=== PATIENT | male | born 1945 | race Caucasian/White ===

== ENCOUNTER 2020-06-10 10:25 | Outpatient (CLI) | payer OTHER, SELFPAY ==
--- NOTE | 2020-06-10 10:40 | CT_ITS ---
WS: [id number] CT CHEST WITH INTRAVENOUS CONTRAST HISTORY: Abnormal CT. TECHNIQUE: Contiguous 5 mm axial imaging performed on the thorax. Coronal and sagittal reformats are submitted. All CT scans at [facility] use at least one of these dose optimization techniq ues: automated exposure control; mA and/or kV adjustment per patient size (includes targeted exams wh ere dose is matched to clinical indication); or iterative reconstruction. CONTRAST: Omnipaque 300; 95 mL IV. DLP: 867.4 mGycm COMPARISON: None available. Lungs and central airway: Severe chronic emphysema. Mild interstitial thickening and articulations. B enign granuloma at the lingula. No pneumonia or mass. Pleura: Normal. No pleural effusion. Heart and pericardium: Mild enlargement of the heart chambers. There are a few scattered calcificatio ns in the ewiiaapaayp coronary arteries. No pericardial effusion. Mediastinum and uriel: Indeterminate mediastinal and hilar lymph nodes. The largest lymph node is LEFT paratracheal at the AP window measuring 14 mm. Smaller precarinal and hilar lymph nodes. Vessels: Mild atherosclerosis aorta. No aneurysm. Pulmonary artery size is normal. Chest wall and lower neck: No soft tissue masses. Upper abdomen: Mild hepatic steatosis. Visualized gallbladder is negative. 10 mm well-circumscribed n odule in the LEFT adrenal gland. RIGHT adrenal gland is negative. Small hiatal hernia. Osseous structures: No destructive process. CT/CT chest w con* [id number] IMPRESSION: 1. Severe chronic emphysema with no pneumonia. 2. Indeterminate hilar mediastinal lymph nodes. Largest lymph node measures 14 mm LEFT paratracheal region. Recommend follow-up chest CT in 3-4 months. 3. LEFT adrenal nodule measures 10 mm. With no history of malignancy this is p robably a benign adenoma. This can be reevaluated in 3-4 months for additional change. 4. By history there is an abnormal CT which is not available for review. If th is CT would become available for review an addendum can be performed. The abnor mality seen by the prior CT was not given as part of that history. Comparison w ith that study is strongly recommended.
[2020-06-10 11:09] LABS: Blood Urea Nitrogen 13 mg/dL (8-23)
[2020-06-10] MEDS: iohexol 300 mg/mL 100 mL Btl IV (11:21)
== END 2020-06-10 10:26 | disposition home or self-care (01) ==
PROVIDERS: Visit Provider Internal Medicine
DX: R93.89 Abnormal findings on diagnostic imaging of other specified body structures (principal); J43.8 Other emphysema; R59.9 Enlarged lymph nodes, unspecified; E27.9 Disorder of adrenal gland, unspecified
CPT/HCPCS: 71260; 82565; 84520; Q9967

== ENCOUNTER → 2020-08-11 17:49 | Outpatient (BNVA) | payer OTHER, SELFPAY | PROVIDERS: Visit Provider Nurse Practitioner Family | DX: Z20.828 Contact with and (suspected) exposure to other viral communicable diseases (principal) | CPT/HCPCS: 87635 ==

== ENCOUNTER 2023-03-11 12:41 | Outpatient (CLI) | payer OTHER, SELFPAY ==
--- NOTE | 2023-03-11 13:02 | CT_ITS ---
WS: [id number] CT ABDOMEN PELVIS TECHNIQUE: Contrast-enhanced CT of the abdomen and pelvis with coronal and sagittal reformatted image s. CLINICAL INFORMATION: FOLLOW UP ENLARGED LYMPH NODES AND ADRENAL MASS HX COMPARISON: Outside [facility] CT 2018. Chest CT June 10, 2020 DLP: 426.[address] scans at [facility] use at least one of these dose optimization techniques: automated e xposure control; mA and/or kV adjustment per patient size (includes targeted exams where dose is matc hed to clinical indication); or iterative reconstruction. FINDINGS: Low-attenuation LEFT adrenal nodule measuring 10 11 mm is unchanged likely adenoma. Additio nal small low-attenuation lesion RIGHT adrenal gland is not included on the prior examination CT ches t. This measures 8 mm also likely adrenal adenoma. Lung bases are well aerated. Mild diffuse fatty infiltration liver. Normal portal vein and splenic v ein. Gallbladder is contracted. Normal spleen. Normal GE junction. Normal portal vein and splenic vei n. Normal pancreatic parenchymal enhancement. Normal caliber abdominal aorta. Celiac and SMA are patent. Small RIGHT renal cysts. No hydronephrosis in either kidney. Prostate enla rgement measuring 4.6 cm. Recommend correlation PSA. Normal sigmoid colon. No evidence of small or la rge bowel obstruction. Fat-containing umbilical hernia. CT/CT abdomen pelvis w con* [id number] IMPRESSION: 1. Mild diffuse fatty infiltration liver. 2. Prostate enlargement measuring 4.6 CM. Thickening of the seminal vesicles. Recommend correlation PSA. 3. No hydronephrosis in either kidney. Incidental RIGHT renal cysts 4. Stable LEFT adrenal lesion measuring 10 to 11 mm likely adrenal adenoma unc hanged. Additional 8 mm nodule RIGHT adrenal gland also likely adenoma. These n odules are unchanged since the outside NE CT 5. No other suspicious findings.
[2023-03-11 14:34] LABS: Blood Urea Nitrogen 12 mg/dL (8-23)
[2023-03-11] MEDS: iohexol 350 mg/mL 500 mL Btl (per mL) PO (14:40)
[2023-03-11] MEDS: iohexol 350 mg/mL 500 mL Btl (per mL) IV (14:40)
== END 2023-03-11 12:42 | disposition home or self-care (01) ==
LOC: RAD 12:44
PROVIDERS: PCP Family Medicine; Visit Provider Family Medicine
DX: R59.9 Enlarged lymph nodes, unspecified (principal); K76.0 Fatty (change of) liver, not elsewhere classified; N40.0 Benign prostatic hyperplasia without lower urinary tract symptoms
CPT/HCPCS: 74177; 82565; 84520; Q9967

== ENCOUNTER 2023-04-22 09:49 | Outpatient (CLI) | payer OTHER, SELFPAY ==
--- NOTE | 2023-04-22 09:59 | USCV_ITS ---
Oren Hyde Age: 78 Gender: M : 1945 Exam Date: 04/22/2023 10:59 Ordering Phys: Iman Cardoso MD Technologist: CT Exam Location: [facility] – [place] Indication: stenosis Risk Factors: Previous Vascular Surgery: Right Brachial BP: / Left Brachial BP: / Right Left Velocity (cm/s) Spectral Plaque Velocity (cm/s) Spectral Plaque Syst/Diast Broadening Syst/Diast Broadening 65.20/ 13.90 Prox CCA 77.80 / 16.20 66.50/ 12.90 Mid CCA 80.30 / 16.20 66.50/ 16.20 Distal CCA 65.30 / 14.20 51.10/ 17.80 Prox ICA 39.90 / 12.80 55.20/ 15.40 Mid ICA 53.20 / 14.60 41.50/ 12.40 Distal ICA 109.20/ 34.20 123.10 ECA 72.40 0.83 ICA/CCA 1.36 Antegrade Vertebral Antegrade 29.00/ 6.50 cm/s 43.60/ 14.50 cm/s Tri Subclavian Tri 85.80 129.7 0 CONCLUSIONS Intimal thickening in the common carotid arteries and internal carotid arteries bilaterally. Right ICA stenosis <50%. Left ICA stenosis <50%. Normal antegrade Doppler flow noted in the right vertebral artery. Normal antegrade Doppler flow noted in the left vertebral artery. Gustavo Samayoa MD (Electronically Signed) Final Date: 22 April 2023 13:00 S
--- NOTE | 2023-04-22 09:59 | US_ITS ---
WS: [id number] RENAL ULTRASOUND HISTORY: R RENAL CYST FOUND ON CT COMPARISON: CT 03/03/2023 TECHNIQUE: 2-D and color Doppler imaging of the kidney submitted. Right kidney: 10.6 cm x 4.3 cm x 5.4 cm. Cortex: 1.6 cm Normal size kidney. No hydronephrosis. Several small cortical cysts are identified. The largest in th e upper pole measures 14 x 14 x 16 mm. Additional smaller cortical cysts. No solid mass. Left kidney: 9.5 cm x 4.1 cm x 4.6 cm. Cortex: 1.2 cm Normal echogenicity with no hydronephrosis or mass. Aorta: Normal. Urinary Bladder: Normally distended urinary bladder. Mildly heterogeneous prostate measures 5.4 x 3.9 x 4.4 cm. US/US renal BI* [id number] IMPRESSION: 1. No hydronephrosis or solid renal mass. 2. RIGHT renal cyst x3. The largest in the upper pole measures 14 x 14 x 16 mm . 3. Prostate enlargement.
== END 2023-04-22 09:50 | disposition home or self-care (01) ==
LOC: RAD 09:52
PROVIDERS: PCP Family Medicine; Visit Provider Family Medicine
DX: N40.0 Benign prostatic hyperplasia without lower urinary tract symptoms (principal); R42 Dizziness and giddiness; Q61.02 Congenital multiple renal cysts
CPT/HCPCS: 76770; 93880

== ENCOUNTER → 2023-06-14 14:39 | Outpatient (BNVA) | payer OTHER, SELFPAY | PROVIDERS: PCP Family Medicine; Visit Provider Internal Medicine Cardiovascular Disease | DX: I10 Essential (primary) hypertension (principal); R55 Syncope and collapse; R00.1 Bradycardia, unspecified; R07.9 Chest pain, unspecified; Z87.891 Personal history of nicotine dependence | CPT/HCPCS: 93005; 99204 ==

== ENCOUNTER → 2023-06-14 15:49 | Outpatient (BNVA) | payer OTHER, SELFPAY | PROVIDERS: PCP Family Medicine; Visit Provider Internal Medicine Cardiovascular Disease | DX: R07.9 Chest pain, unspecified (principal) | CPT/HCPCS: 93005 ==

== ENCOUNTER 2023-06-22 12:03 | Outpatient (CLI) | payer OTHER, SELFPAY ==
--- NOTE | 2023-06-22 12:15 | USCV_ITS ---
Oren Hyde Age: 78 Gender: M : 1945 Exam Date: 06/22/2023 12:53 Ordering Phys: Daina Frank MD ([email or web address]) Technologist: [place] [facility] [place]: syncope BP: 120 / 69 HR: 48 Rhythm: Sinus Technical Quality: Adequate MEASUREMENTS (Male / Female) Normal Values 2D ECHO LV Chamber Size 4.8 cm RV Chamber Size 3.7 cm LVOT Diameter 2.3 cm LV Ejection Fraction MOD 2C 64.2 % LV Ejection Fraction 2C AL 63.5 % LA Diameter 3.5 cm LA Width 3.2 cm LA Height 4.4 cm RA Width 3.0 cm RA Height 4.5 cm Aorta at Sinotubular Diameter 3.0 cm IVC Diameter 1.7 cm M-MODE Aortic Annulus Diameter 3.1 cm LA Ao Ratio MM 1.2 MV E Point Septal Separation 0.6 cm DOPPLER AV Peak Velocity 132.0 cm/s LVOT Peak Velocity 104.0 cm/s AV Area Cont Eq vti 2.8 cm squared AV Area Cont Eq pk 3.2 cm squared MV Area PHT 2.0 cm squared Mitral E to A Ratio 1.3 MV E' Velocity 38.0 cm/s Mitral E to MV E' Ratio 7.1 Mitral E to LV E' Lateral Ratio 6.7 Mitral E to LV E' Septal Ratio 7.6 TR Peak Velocity 208.5 cm/s TR Peak Gradient 17.4 mmHg TV Peak E Velocity 73.0 cm/s Right Atrial Pressure 3.0 mmHg Pulmonary Artery Systolic Pressu 20.4 mmHg PV Peak Velocity 111.0 cm/s FINDINGS Left Ventricle Normal left ventricular size and systolic function, EF 59 %. No regional wall motion abnormalities. Mild left ventricular hypertrophy. Right Ventricle Normal right ventricular size and systolic function. Right Atrium Normal right atrial size. Left Atrium The left atrium is normal in size. Mitral Valve No gross abnormalities noted Aortic Valve Thickened aortic valve. Tricuspid Valve Trace to mild tricuspid valve regurgitation. Pulmonic Valve NO gross abnormalities Pericardium No pericardial effusion. Aorta Normal aortic annulus size. IVC Normal inferior vena cava. CONCLUSIONS Normal left ventricular size and systolic function, EF 59 %. No regional wall motion abnormalities. Mild left ventricular hypertrophy. Thickened aortic valve. Trace to mild tricuspid valve regurgitation. Estimated pulmonary artery peak systolic pressure 20 mm Hg There is no pericardial effusion. There are no intracardiac masses. No similar previous studies are available for comparison Dr Daina Frank MD [facility] (Electronically Signed) Final Date: 23 June 2023 22:03 S
== END 2023-06-22 12:04 | disposition home or self-care (01) ==
PROVIDERS: PCP Family Medicine; Visit Provider Internal Medicine Cardiovascular Disease
DX: R55 Syncope and collapse (principal); R06.09 Other forms of dyspnea; I07.1 Rheumatic tricuspid insufficiency
CPT/HCPCS: 93306; 99204

== ENCOUNTER → 2023-09-19 09:06 | Outpatient (BNVA) | payer OTHER, SELFPAY | PROVIDERS: PCP Family Medicine; Referring Provider Family Medicine; Visit Provider Surgery | DX: K59.00 Constipation, unspecified | CPT/HCPCS: 99203 ==

== ENCOUNTER 2023-09-20 15:14 | Outpatient (CLI) | payer OTHER, SELFPAY ==
--- NOTE | 2023-09-20 15:20 | XR_ITS ---
WS: [id number] SCREENING DEXA SCAN [facility] CLINICAL INFORMATION: ELEVATED PTH-?OSTEOPOROSIS COMPARISON: None. FINDINGS: The L1-L4 bone mineral density measures 1.217 g/cm2. This corresponds to a T score score of 0.0 and Z score of 0.5. Left femoral neck bone mineral density measures 0.812 g/cm2. This corresponds to a T score of -2.0 an d Z score of -1.1. Right femoral neck bone mineral density measures 0.836 g/cm2. This corresponds to a T score -1.8of an d Z score of -0.9. Mean femoral neck bone mineral density measures 0.824 g/cm2. This corresponds to a T score of -1.9 an d Z score of -1.0. IMPRESSION: Normal bone mineralization lumbar spine. Osteopenia femoral necks. Patient's FRAX calculated 10 year probability for major osteoporotic fracture is 11.1% and osteoporot ic hip fracture is 4.8%.
== END 2023-09-20 15:15 | disposition home or self-care (01) ==
LOC: RAD 15:15
PROVIDERS: PCP Family Medicine; Visit Provider Family Medicine
DX: Z13.820 Encounter for screening for osteoporosis (principal); M85.852 Other specified disorders of bone density and structure, left thigh; M85.851 Other specified disorders of bone density and structure, right thigh; R79.89 Other specified abnormal findings of blood chemistry
CPT/HCPCS: 77080

== ENCOUNTER → 2023-09-29 13:56 | Outpatient (BNVA) | payer OTHER, SELFPAY | PROVIDERS: PCP Family Medicine; Visit Provider Internal Medicine Cardiovascular Disease | DX: R00.1 Bradycardia, unspecified (principal); I10 Essential (primary) hypertension; R55 Syncope and collapse; J43.9 Emphysema, unspecified; Z87.891 Personal history of nicotine dependence | CPT/HCPCS: 99214 ==

== ENCOUNTER → 2024-04-03 09:26 | Outpatient (BNVA) | payer OTHER, SELFPAY | PROVIDERS: PCP Family Medicine; Visit Provider Internal Medicine Cardiovascular Disease | DX: I10 Essential (primary) hypertension (principal); R00.1 Bradycardia, unspecified; R55 Syncope and collapse; R06.02 Shortness of breath; Z87.891 Personal history of nicotine dependence | CPT/HCPCS: 99214 ==

== ENCOUNTER 2024-04-26 07:10 | Outpatient (CLI) | payer OTHER, SELFPAY ==
[2024-04-26 07:43] VITALS: BMI 28.0
--- NOTE | 2024-04-26 08:11 | NMCV_ITS ---
NM ana maria perf SPECT r/s* [id number] Oren Hyde Age: 79 Gender: M : 1945 Exam Date: 04/26/2024 08:00 Ordering Phys: Daina Frank MD ([email or web address]) Technologist: TOMMY Caba Exam Location: [facility] Indications: CP, bradycardia STRESS TEST Please see separate stress test report in [facility] for full findings IMAGE PROTOCOL Rest/Stress 1 Lexiscan Day Radiopharmaceutical Dose (mCi) Administration Site Administered by Rest: Tc-99m 10.6 IV TOMMY Caba Sestamibi Stress:Tc-99m 32.3 IV TOMMY Caba Sestamibi Rest: 26-Apr-2024 60 Discovery 630 Stress: 26-Apr-2024 30 Discovery 630 0.4mg Lexiscan. Images obtained in supine and prone position. SPECT RESULTS Technical Quality: Good Raw Data Analysis: Normal Image Corrections: No attenuation or motion correction applied Summed Stress Score: 3 Summed Rest Score: 6 Summed Difference Score: 1 PERFUSION FINDINGS Small to moderate area of slightly decreased aseptic in the tracer uptake, involving the mid inferolateral, mid inferoseptal and apical lateral segments. Some reversibility was noted in the apical lateral segment FUNCTIONAL RESULTS (calculated via Gated SPECT) Stress Image LV EF (%): 74 Stress EDV (mL):107 TID: 0.97 Stress ESV (mL):28 FUNCTIONAL FINDINGS: Segmental wall motion analysis revealing no gross wall motion abnormalities IMPRESSIONS 1. Myocardial perfusion imaging revealing areas of slightly decreased persistent tracer uptake involving the mid inferolateral and mid inferoseptal regions suggesting myocardial scarring versus attenuation artifact. A small area of reversible defect in the apical lateral region, suggestive of ischemia in the distribution of the left circumflex artery 2. Normal LV ejection fraction of 74%. 3. LV wall motion analysis revealing no gross wall motion abnormalities. 4. Normal LV volume No similar previous studies are available for comparison Dr Daina Frank MD FAC (Electronically Signed) Final Date: 26 April 2024 20:15 S
--- NOTE | 2024-04-26 08:11 | ECG_ITS ---
[facility] Test Date: 2024-04-26 Pat Name: Oren Hyde Department: Room: Gender: Male Mobile Sales Expert: : 1945 Requested By: Daina Frank Order Number: [id number] Brock MD: Daina Frank M.D. Interpretive Statements NAME OF STUDY: LEXISCAN SESTAMIBI STRESS TEST INDICATION: Sob/near syncope, PROCEDURE: At the baseline, the EKG revealed sinus bradycardia with a normal ST Ts. The baseline heart was 54 bpm with a blood pressue of 129/79 mm of Hg Lexiscan was infused over a period of 20 seconds. A total of 0.4 milligrams of Lexiscan was infused. The stress phase was continued for a total of 5 minutes. Heart rate at the end of the stress phase was 55 bpm with a blood pressure 120/64 mm of Hg. The EKG at the peak infusion revealed no significant changes. Sestamibi was injected 20 seconds after the Lexiscan infusion. Heart rate at the end of the recovery phase was 56 bpm with a blood pressure of 122/65 mm of Hg. CONCLUSION: 1. No significant EKG changes with the LexiScan infusion 2. No LexiScan induced chest pain or cardiac arrhythmia 3. Normal blood pressure and heart rate response 4. Sestamibi/sestamibi perfusion scan pending; see separate report. Electronically Signed On 04-27-2024 19:50:36 CDT by Daina Frank M.D. [email or web address]
[2024-04-26] MEDS: regadenoson 0.4 Mg/5 ml Syringe 0.400000000000000022 MG IVP (08:37)
[2024-04-26 09:18] VITALS: BP 122/65; PULSE 56
== END 2024-04-26 07:11 | disposition home or self-care (01) ==
LOC: CDL 07:10
PROVIDERS: PCP Family Medicine; Visit Provider Internal Medicine Cardiovascular Disease
DX: R55 Syncope and collapse (principal)
CPT/HCPCS: 36415; 78452; 93017; 96374; A9500; J2785

== ENCOUNTER → 2024-10-10 08:08 | Outpatient (BNVA) | payer OTHER, SELFPAY | PROVIDERS: PCP Family Medicine; Referring Provider Family Medicine; Visit Provider Internal Medicine | DX: E27.9 Disorder of adrenal gland, unspecified (principal); I10 Essential (primary) hypertension | CPT/HCPCS: 99204 ==

== ENCOUNTER → 2024-10-16 09:31 | Outpatient (BNVA) | payer OTHER, SELFPAY | PROVIDERS: PCP Family Medicine; Visit Provider Internal Medicine Cardiovascular Disease | DX: I10 Essential (primary) hypertension (principal); J44.9 Chronic obstructive pulmonary disease, unspecified; Z87.898 Personal history of other specified conditions | CPT/HCPCS: 99214 ==

== ENCOUNTER → 2025-04-01 10:03 | Outpatient (BNVA) | payer OTHER, SELFPAY | PROVIDERS: PCP Family Medicine; Visit Provider Internal Medicine | DX: E27.9 Disorder of adrenal gland, unspecified (principal); I10 Essential (primary) hypertension | CPT/HCPCS: 99214 ==

== ENCOUNTER 2025-04-05 14:19 | Outpatient (CLI) | payer OTHER, SELFPAY ==
--- NOTE | 2025-04-05 15:15 | MR_ITS ---
WS: [id number] MRI ADRENALS WITH AND WITHOUT CONTRAST. COMPARISON: 03/11/2023 and 03/07/2019 Multiplanar, multisequence imaging is performed with and without contrast. MultiHance 20 mL. Very mild thickening of the RIGHT adrenal gland. Area of thickening measures 8 mm which is similar to the prior study. There is no enhancement. There is signal loss on the out of phase imaging. LEFT adrenal gland: LEFT adrenal mass measures 13 x 9 mm. On the T2 sequences there is a cystic component. On the out of phase imaging there is complete loss of signal suggesting this is an adenoma. No solid component. On the postcontrast imaging no enhancement. There is mild peripheral enhancement on the delayed imaging. Visualized lung bases are clear. Normal appearance of the liver and spleen. Normal gallbladder. No intrahepatic duct dilatation. Multiple RIGHT renal cysts. The largest cyst measures 1.8 x 2.0 cm in the mid kidney. No solid masses. Tiny cortical cyst LEFT kidney. Normal pancreas. No ascites or adenopathy. Visualized GI tract is negative. MR/MR adrenals wo/w con [id number] IMPRESSION: 1. LEFT adrenal adenoma. Adenoma measures 13 x 9 mm and is stable since 2019. 2. Very mild RIGHT adrenal gland limb thickening. No enhancement. Slight loss of signal suggesting this probably is a benign adenoma. 3. Bilateral renal cysts, no enhancing masses. 4. No ascites or adenopathy. 5. Negative pancreas.
== END 2025-04-05 14:20 | disposition home or self-care (01) ==
LOC: RAD 14:20
PROVIDERS: PCP Family Medicine; Visit Provider Internal Medicine
DX: E27.8 Other specified disorders of adrenal gland (principal); I10 Essential (primary) hypertension; D35.01 Benign neoplasm of right adrenal gland; N28.1 Cyst of kidney, acquired
CPT/HCPCS: 74183

== ENCOUNTER → 2025-04-30 09:21 | Outpatient (BNVA) | payer OTHER, SELFPAY | PROVIDERS: PCP Family Medicine; Visit Provider Internal Medicine | DX: J43.9 Emphysema, unspecified (principal); I10 Essential (primary) hypertension | CPT/HCPCS: 80053; 82088; 84244 ==

== ENCOUNTER → 2025-05-13 11:42 | Outpatient (BNVA) | payer OTHER, SELFPAY | PROVIDERS: PCP Family Medicine; Visit Provider Internal Medicine | DX: E27.9 Disorder of adrenal gland, unspecified (principal); I10 Essential (primary) hypertension | CPT/HCPCS: 82384; 82530; 82570; 83835 ==

== ENCOUNTER 2025-08-26 15:30 | Outpatient (CLI) | payer OTHER, SELFPAY ==
--- NOTE | 2025-08-26 16:00 | USCV_ITS ---
Mary EllenOren Age: 80 Gender: M : 1945 Exam Date: 08/26/2025 16:18 Ordering Phys: Silvestre Matthew MD Technologist: Exam Location: [facility] [place] Indication: Risk Factors: Previous Vascular Surgery: Right Brachial BP: / Left Brachial BP: / Right Left Velocity (cm/s) Spectral Plaque Velocity (cm/s) Spectral Plaque Syst/Diast Broadening Syst/Diast Broadening 102.80/15.20 Prox CCA 104.90/ 17.40 80.80/ 16.30 Mid CCA 95.50 / 15.80 72.00/ 17.40 Distal CCA 86.70 / 14.00 81.40/ 20.30 Prox ICA 104.40/ 26.40 52.70/ 18.60 Mid ICA 130.40/ 22.30 47.90/ 15.60 Distal ICA 98.50 / 20.60 141.70 ECA 102.60 1.10 ICA/CCA 1.20 Antegrade Vertebral Antegrade 39.70/ 10.30 cm/s 53.00/ 13.90 cm/s Tri Subclavian Tri 131.8 176.5 0 0 FINDINGS Comparison:. 04/22/23 No significant elevation of systolic or diastolic velocities. Diffuse bilateral scattered calcified plaque in common carotid arteries and extending through the bifurcation. Normal antegrade vertebral arteries. CONCLUSIONS Bilateral ICA stenosis less than 50%. No interval change in stenosis since prior exam. Mild carotid atherosclerosis. Dr. Mari Hidalgo DO (Electronically Signed) Final Date: 27 August 2025 07:52 S
== END 2025-08-26 15:31 | disposition home or self-care (01) ==
LOC: RAD 15:31
PROVIDERS: PCP Family Medicine; Visit Provider Family Medicine Geriatric Medicine
DX: I65.23 Occlusion and stenosis of bilateral carotid arteries (principal)
CPT/HCPCS: 93880

== ENCOUNTER 2025-08-29 08:54 | Outpatient (CLI) | payer OTHER, SELFPAY ==
--- NOTE | 2025-08-29 09:18 | USCV_ITS ---
Oren Hyde Age: 80 Gender: M : 1945 Exam Date: 08/29/2025 09:55 Ordering Phys: Iman Cardoso MD Technologist: FRAN [place] [facility] [place]: Dizziness BP: 118 / 62 HR: 47 Rhythm: Sinus Technical Quality: Adequate MEASUREMENTS (Male / Female) Normal Values 2D ECHO LV Diastolic Diameter PLAX 5.1 cm 4.2 - 5.9 / 3.9 - 5.3 cm IVS Diastolic Thickness 1.0 cm 0.6 - 1.0 / 0.6 - 0.9 cm IVS Systolic Thickness 1.7 cm LVPW Diastolic Thickness 1.4 cm 0.6 - 1.0 / 0.6 - 0.9 cm LVPW Systolic Thickness 2.1 cm LVOT Diameter 1.9 cm LV Ejection Fraction 2D Teich 60.1 % LV Ejection Fraction MOD 4C 66.8 % LV Ejection Fraction MOD 2C 65.4 % LV Ejection Fraction 2C AL 66.9 % LA Diameter 3.4 cm RA Systolic Volume 4C AL 55.2 ml RA Systolic Volume 4C MOD 53.3 ml LA Sys Volume AL 37.8 cm cubed LA Sys Volume Index AL 17.8 cm cubed/m squared Aorta at Sinotubular Diameter 2.9 cm IVC Diameter 1.8 cm M-MODE LA Ao Ratio MM 1.2 AV Cusp Separation MM 1.9 cm DOPPLER AV Peak Velocity 161.0 cm/s LVOT Peak Velocity 110.0 cm/s AV Area Cont Eq vti 2.1 cm squared AV Area Cont Eq pk 1.9 cm squared MV Peak Velocity 91.0 cm/s MV Area PHT 3.9 cm squared Mitral E to A Ratio 0.9 TV Peak Velocity 185.5 cm/s TR Peak Velocity 260.0 cm/s TR Peak Gradient 27.0 mmHg TV Peak E Velocity 75.0 cm/s PV Peak Velocity 95.0 cm/s FINDINGS Left Ventricle Normal left ventricular size, systolic function and wall thickness, with no regional wall motion abnormalities. Left ventricular ejection fraction is estimated at 60 %. Grade I/IV diastolic dysfunction (abnormal relaxation filling pattern), normal to mildly elevated filling pressures. Right Ventricle Normal right ventricular size and systolic function. Right Atrium Normal right atrial size. Left Atrium Normal left atrial size. IA Septum Normal appearance of the interatrial septum. Mitral Valve Mildly thickened mitral valve. No mitral valve stenosis. Mild mitral valve regurgitation. Aortic Valve Moderate aortic valve calcification. No aortic valve stenosis. Trace aortic valve regurgitation. Tricuspid Valve Normal tricuspid valve structure. No tricuspid valve stenosis or regurgitation. Normal pulmonary pressure. Pulmonic Valve Normal pulmonic valve structure. No pulmonic valve stenosis or regurgitation. Pericardium No pericardial effusion. Aorta Normal diameter of the aortic root and ascending thoracic aorta. IVC Normal IVC diameter. CONCLUSIONS Normal left ventricular size, systolic function and wall thickness, with no regional wall motion abnormalities. Left ventricular ejection fraction is estimated at 60 %. Grade I/IV diastolic dysfunction (abnormal relaxation filling pattern), normal to mildly elevated filling pressures. Mildly thickened mitral valve. No mitral valve stenosis. Mild mitral valve regurgitation. Moderate aortic valve calcification. No aortic valve stenosis. Trace aortic valve regurgitation. There is no pericardial effusion. Right atrial pressure is around 5 mm of mercury. Melo Day MD (Electronically Signed) Final Date: 08 September 2025 01:11 S
== END 2025-08-29 08:55 | disposition home or self-care (01) ==
LOC: RAD 08:57
PROVIDERS: PCP Family Medicine; Visit Provider Specialist
DX: R42 Dizziness and giddiness (principal); I50.30 Unspecified diastolic (congestive) heart failure; I34.0 Nonrheumatic mitral (valve) insufficiency; I34.9 Nonrheumatic mitral valve disorder, unspecified; I35.8 Other nonrheumatic aortic valve disorders
CPT/HCPCS: 93306

== ENCOUNTER → 2025-10-16 10:48 | Outpatient (BNVA) | payer OTHER, SELFPAY | PROVIDERS: PCP Family Medicine; Visit Provider Internal Medicine Cardiovascular Disease | DX: R07.9 Chest pain, unspecified (principal); I10 Essential (primary) hypertension; R00.1 Bradycardia, unspecified; R55 Syncope and collapse; J44.9 Chronic obstructive pulmonary disease, unspecified; E78.5 Hyperlipidemia, unspecified; Z87.891 Personal history of nicotine dependence | CPT/HCPCS: 93005; 99214 ==